=== PATIENT | female | born 1935 | race Caucasian/White ===

== ENCOUNTER 2024-03-24 13:43 | Outpatient (CLI) | payer MEDICARE, OTHER ==
[~2024-03-24] VITALS: Ht 149.9 cm; Wt 45.0 kg
[2024-03-24] MEDS ORDERED: TOPROL XL200 MG PO (14:17)
[2024-03-24] MEDS ORDERED: PRINIVIL40 MG PO (14:17)
[2024-03-24] MEDS ORDERED: NORVASC 5MG5 MG/TAB PO (14:18)
[2024-03-24] MEDS ORDERED: MIRTAZAPINE7.5 MG PO (14:19)
[2024-03-24] MEDS ORDERED: HCTZ12.5TAB PO (14:19)
[2024-03-24] MEDS ORDERED: CITRACAL + D CA1 TAB (14:20)
[2024-03-24] MEDS ORDERED: PRESERVISION A1 EAC3 PO (14:20)
[2024-03-24] MEDS ORDERED: MASON NATURAL2000 IU PO (14:22)
[2024-03-24] MEDS ORDERED: FISH OIL 1000MG1 CAP PO (14:22)
[2024-03-24] MEDS ORDERED: TYLENOL 500MG500 MG PO (14:23)
[2024-03-24] MEDS ORDERED: ASPIRIN E.C. 8181 MG PO (14:23)
[2024-03-24] MEDS ORDERED: LUMIGAN 2.5 ML2.5 M1 OP (14:24)
[2024-03-24] MEDS ORDERED: RECLAST5 MG/100 M IV (14:24)
[2024-03-24] MEDS ORDERED: NIZORAL SHAMPO120 M1 TP (14:24)
[2024-03-24 14:46] VITALS: BP 95/50; PULSE 57; TEMP 98.3
== END 2024-03-24 14:48 | disposition home or self-care (01) ==
LOC: EUO 13:43
DX: M81.0 Age-related osteoporosis without current pathological fracture (principal)
CPT/HCPCS: J3489